=== PATIENT | male | born 1980 | race Two or more races ===

== ENCOUNTER 2018-04-16 14:00 | Emergency (ER) | payer SELFPAY ==
[2018-04-16 14:33] LABS: ADD MAN DIFF? NO
[2018-04-16 14:37] LABS: BASO % 0 % (0-3); EOS # 0.1 x10^3/uL (0.0-0.7); EOS % 2 % (0-3); HEMOGLOBIN 12.8 g/dL (13.0-17.5); LYMPH # 1.3 x10^3/uL (1.0-4.8); LYMPH % 18 % (24-48); MEAN CORPUSCULAR HEMOGLOBIN 32 pg (25-35); MEAN CORPUSCULAR HGB CONC 34 g/dL (31-37); MEAN CORPUSCULAR VOLUME 95 fL (79-100); MONO % 13 % (0-9); NEUT # 4.8 x10^3uL (1.8-7.7); NEUT % 67 % (31-73); PLATELET COUNT 293 x10^3/uL (140-400); RED BLOOD COUNT 4.01 x10^6/uL (4.30-5.70); RED CELL DISTRIBUTION WIDTH 19.8 % (11.5-14.5); WHITE BLOOD COUNT 7.2 x10^3/uL (4.0-11.0)
[2018-04-16 14:43] LABS: BILIRUBIN,URINE NEGATIVE (NEG); CLARITY,URINE CLEAR; COLOR,URINE YELLOW; GLUCOSE,URINE NEGATIVE (NEG); NITRITE,URINE NEGATIVE (NEG); PH,URINE 7.5; PROTEIN,URINE NEGATIVE (NEG-TRACE); UROBILINOGEN,URINE 0.2 mg/dL (0.2 mg/dL)
[2018-04-16 14:48] LABS: BACTERIA,URINE 0 /HPF (0-FEW); RBC,URINE 0 /HPF (0-2); WBC,URINE 0 /HPF (0-4)
[2018-04-16 14:50] LABS: BARBITURATES NEG (NEG); BENZODIAZEPINES NEG (NEG); CANNABINOIDS NEG (NEG); COCAINE NEG (NEG); METHADONE NEG (NEG); OPIATES NEG (NEG); PHENCYCLIDINE NEG (NEG)
[2018-04-16 14:57] LABS: AMPHETAMINE/METHAMPHETAMINE NEG (NEG); ANION GAP 4 (6-14); BLOOD UREA NITROGEN 4 mg/dL (8-26); BUN/CREATININE RATIO 4 (6-20); CALCIUM 9.3 mg/dL (8.5-10.1); CARBON DIOXIDE 29 mmol/L (21-32); CHLORIDE 105 mmol/L (98-107); CREATININE 0.9 mg/dL (0.7-1.3); ETHANOL, URINE NEG (NEG); GFR 93.9; GLUCOSE 93 mg/dL (70-99); SODIUM 138 mmol/L (136-145)
[2018-04-16 15:04] LABS: ALBUMIN 3.8 g/dL (3.4-5.0); LIPASE 412 U/L (73-393)
[2018-04-16] MEDS: IV NORMAL SALINE 1000ML BAG 1,000 ML IV (15:04)
[2018-04-16 15:18] LABS: ACETAMIN < 2 mcg/ml (10-30); ETHANOL < 10 mg/dL (0-10)
[2018-04-16 15:18] LABS: LACTIC ACID 1.4 mmol/L (0.4-2.0)
[2018-04-16 15:19] LABS: SALIC < 2.8 mg/dL (2.8-20.0)
[2018-04-16 15:20] LABS: ALBUMIN/GLOBULIN RATIO 1.1 (1.0-1.7); ALK PHOS 97 U/L (46-116); ALT (SGPT) 110 U/L (16-63); AST (SGOT) 49 U/L (15-37); TOTAL BILIRUBIN 1.1 mg/dL (0.2-1.0); TOTAL PROTEIN 7.4 g/dL (6.4-8.2)
== END 2018-04-16 17:00 | disposition home or self-care (01) ==
LOC: ER 14:00
DX: R56.9 Unspecified convulsions (principal); R74.8 Abnormal levels of other serum enzymes; F10.129 Alcohol abuse with intoxication, unspecified
CPT/HCPCS: 36415; 80053; 80307; 80329; 81001; 83605; 83690; 85025; 99284; G0480; G6039; J7030

== ENCOUNTER 2018-04-16 22:12 | Emergency (ER) | payer SELFPAY ==
[2018-04-16 22:30] LABS: ADD MAN DIFF? NO
[2018-04-16 22:34] LABS: BASO % 0 % (0-3); EOS # 0.2 x10^3/uL (0.0-0.7); EOS % 3 % (0-3); HEMATOCRIT 37.4 % (39.0-53.0); HEMOGLOBIN 12.5 g/dL (13.0-17.5); LYMPH # 1.8 x10^3/uL (1.0-4.8); LYMPH % 28 % (24-48); MEAN CORPUSCULAR HEMOGLOBIN 32 pg (25-35); MEAN CORPUSCULAR HGB CONC 34 g/dL (31-37); MEAN CORPUSCULAR VOLUME 95 fL (79-100); MONO # 0.9 x10^3/uL (0.0-1.1); MONO % 14 % (0-9); NEUT # 3.6 x10^3uL (1.8-7.7); NEUT % 55 % (31-73); PLATELET COUNT 303 x10^3/uL (140-400); RED BLOOD COUNT 3.95 x10^6/uL (4.30-5.70); WHITE BLOOD COUNT 6.6 x10^3/uL (4.0-11.0)
[2018-04-16] MEDS: IV NORMAL SALINE 1000ML BAG 1,000 ML IV (22:50)
[2018-04-16 22:56] LABS: ANION GAP 9 (6-14); BLOOD UREA NITROGEN 5 mg/dL (8-26); CARBON DIOXIDE 26 mmol/L (21-32); CHLORIDE 105 mmol/L (98-107); GFR 83.2; GLUCOSE 91 mg/dL (70-99); POTASSIUM 3.6 mmol/L (3.5-5.1); SODIUM 140 mmol/L (136-145)
[2018-04-16 22:57] LABS: ETHANOL < 10 mg/dL (0-10)
[2018-04-16 23:11] LABS: TROPONINI < 0.017 ng/mL (0.000-0.055)
[2018-04-16 23:17] LABS: LACTIC ACID 0.8 mmol/L (0.4-2.0)
== END 2018-04-17 01:55 | disposition short-term general hospital (02) ==
LOC: ER 04-17 01:55
DX: R42 Dizziness and giddiness (principal); R56.9 Unspecified convulsions
CPT/HCPCS: 36415; 70450; 71045; 80048; 83605; 84484; 85025; 93005; 96360; 99285-25; G0480; J7030